=== PATIENT | female | born 1970 | race Caucasian/White ===

== ENCOUNTER → 2019-09-15 | Outpatient (CLI) | payer OTHER ==
--- NOTE | 2019-09-18 17:04 | 24HR ---
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 The study duration was 24 hours and the technical quality was acceptable. Predominant rhythm sinus rhythm at an average heart rate of 82 bpm, range 57-160 bpm. 2. No episodes of atrial fibrillation or atrial flutter. No heart block. No pauses. Longest RR interval 1.4 seconds. 3. Occasional isolated atrial premature complexes. Rare atrial couplets. No episodes of PSVT. 4. Occasional isolated premature ventricular complexes. PVC burden 1.4%. No episodes of ventricular tachycardia. 5. No symptoms reported. Electronically Signed On 09-18-2019 17:04:05 CDT by Alfonso Valdovinos [email or web address] <ELECTRONICALLY SIGNED> By: Alfonso Valdovinos MD, [facility] 09/18/19 1704 [id number] Alfonso Valdovinos MD, [facility] /EPI
== END ==
LOC: CV 11:07
DX: I49.9 Cardiac arrhythmia, unspecified (principal)

== ENCOUNTER → 2020-03-18 | Outpatient (CLI) | payer OTHER | LOC: ULTRA 15:47 | DX: D25.9 Leiomyoma of uterus, unspecified (principal) ==

== ENCOUNTER → 2020-05-30 | Outpatient (CLI) | payer OTHER | LOC: MRI 10:20 | PROVIDERS: ATTEND Family Medicine | DX: M51.27 Other intervertebral disc displacement, lumbosacral region (principal); M47.816 Spondylosis without myelopathy or radiculopathy, lumbar region ==